=== PATIENT | female | born 1975 | race Caucasian/White ===

== ENCOUNTER 2021-07-24 03:23 | Emergency (ER) | payer OTHER ==
[~2021-07-24] VITALS: Ht 165.1 cm; Wt 77.1 kg
[~2021-07-24 03:23] MED LIST: LEVOTHYROXINE112 MCG PO; SYNTHROID100 MCG; VISTARIL25 MG PO
[2021-07-24] MEDS ORDERED: CYTOMEL5 MCG (03:34)
[2021-07-24] MEDS ORDERED: LEVSIN/SL0.125 MG SL (06:08)
[2021-07-24] MEDS ORDERED: PEPCID AC20 MG PO (06:08)
== END 2021-07-24 06:16 | disposition home or self-care (01) ==
LOC: ER 03:23
DX: K29.70 Gastritis, unspecified, without bleeding (principal); Z91.018 Allergy to other foods